=== PATIENT | female | born 1990 | race Caucasian/White ===

== ENCOUNTER → 2020-02-29 09:35 | Outpatient (CLI) | payer OTHER ==
[~2020-02-29 09:35] MED LIST: CELEXA PO; CLARITIN10 MG PO; DEXILANT60 MG PO; FOCALIN XR20 MG PO; FOCALIN10 MG PO; HYOSCYAMINE PO; INTUNIV1 MG PO; MONONESSA1 TAB PO; NEXIUM10 MG PO; ONE DAILY1 TA2 PO; VITAMIN D35000 UNI1 PO
== END | disposition home or self-care (01) ==
LOC: LAB 09:35
PROVIDERS: ATTEND Anesthesiology
DX: Z03.818 Encounter for observation for suspected exposure to other biological agents ruled out (principal)

== ENCOUNTER → 2020-08-17 14:26 | Outpatient (CLI) | payer OTHER | END | disposition home or self-care (01) | LOC: LAB 14:26 | PROVIDERS: ATTEND Anesthesiology | DX: Z03.818 Encounter for observation for suspected exposure to other biological agents ruled out (principal) ==

== ENCOUNTER 2022-01-19 12:29 | Outpatient (CLI) | payer OTHER | END 2022-01-19 12:39 | disposition home or self-care (01) | LOC: PPH VACUNA 12:29 | PROVIDERS: ATTEND Emergency Medicine Pediatric Emergency Medicine | DX: Z23 Encounter for immunization (principal) ==

== ENCOUNTER 2022-01-21 14:05 | Outpatient (CLI) | payer OTHER | END 2022-01-21 14:15 | disposition home or self-care (01) | LOC: PPH VACUNA 14:05 | PROVIDERS: ATTEND Emergency Medicine Pediatric Emergency Medicine | DX: Z23 Encounter for immunization (principal) ==

== ENCOUNTER 2024-11-27 13:45 | Outpatient (CLI) | payer OTHER | END 2024-11-27 14:07 | disposition home or self-care (01) | LOC: RAD 13:45 | PROVIDERS: ATTEND Orthopaedic Surgery | DX: M79.671 Pain in right foot (principal); M79.672 Pain in left foot; M54.50 Low back pain, unspecified; M25.551 Pain in right hip; M25.571 Pain in right ankle and joints of right foot; M25.572 Pain in left ankle and joints of left foot ==

== ENCOUNTER 2024-12-02 10:42 | Outpatient (CLI) | payer OTHER | END 2024-12-02 10:43 | disposition home or self-care (01) | LOC: NUCLEAR 10:42 | PROVIDERS: ATTEND Orthopaedic Surgery | DX: M54.50 Low back pain, unspecified (principal); M25.571 Pain in right ankle and joints of right foot; M25.572 Pain in left ankle and joints of left foot ==

== ENCOUNTER 2024-12-05 11:16 | Outpatient (CLI) | payer OTHER | END 2024-12-05 11:22 | disposition home or self-care (01) | LOC: MRI 11:16 | PROVIDERS: ATTEND Orthopaedic Surgery | DX: M84.361D Stress fracture, right tibia, subsequent encounter for fracture with routine healing (principal); M84.362D Stress fracture, left tibia, subsequent encounter for fracture with routine healing; X58.XXXD Exposure to other specified factors, subsequent encounter | CPT/HCPCS: 73718 ==

== ENCOUNTER 2024-12-30 10:31 | Outpatient (CLI) | payer OTHER | END 2024-12-30 10:46 | disposition home or self-care (01) | LOC: MRI 10:31 | PROVIDERS: ATTEND Anesthesiology Pain Medicine | DX: M54.17 Radiculopathy, lumbosacral region (principal); M54.16 Radiculopathy, lumbar region | CPT/HCPCS: 72148 ==